=== PATIENT | male | born 1970 ===

== ENCOUNTER 2025-06-28 11:00 | Inpatient (IN) | payer OTHER ==
[2025-06-17 13:55] VITALS: BP 122/85
[~2025-06-28] VITALS: Ht 182.9 cm; Wt 101.6 kg
[~2025-06-28 11:00] MED LIST: ACID REDUCER20 M1 PO; ALLERGY EYE DRO10 M1 OTIC; MULTIPLE VITAM1 EAC2 PO; PRILOSEC OTC20 MG PO
[2025-06-28] MEDS ORDERED: CEFAZOLIN SODIUM 1,000 MG VIAL ONE ×2 (12:21→23:57)
[2025-06-28] MEDS ORDERED: SODIUM CHLORIDE 0.45 % 1,000 ML IV SCH (18:00)
[2025-06-28] MEDS ORDERED: ACETAMINOPHEN 500 MG GEL..CAP PO SCH (18:00)
[2025-06-28] MEDS ORDERED: MORPHINE SULFATE 4 MG/ML CARTRIDGE IV PRN (18:00)
[2025-06-28] MEDS ORDERED: ONDANSETRON HCL 2 MG/ML VIAL IV PRN (18:00)
[2025-06-28] MEDS ORDERED: OxyCODONE HCL 5 MG TABLET (ROXICODONE) PO PRN (18:00)
[2025-06-28] MEDS ORDERED: ACETAMINOPHEN 500 MG GEL..CAP PO ONE (22:48)
[2025-06-28] MEDS ORDERED: GABAPENTIN 300 MG CAPSULE PO ONE (23:57)
[2025-06-29] MEDS ORDERED: GABAPENTIN 300 MG CAPSULE PO SCH (01:00)
[2025-06-29] MEDS ORDERED: CEFAZOLIN SODIUM 1,000 MG VIAL IV SCH (01:00)
[2025-06-29 03:14] VITALS: BP 117/69; O2SAT 99
[2025-06-29] MEDS ORDERED: APIXABAN 2.5 MG TABLET PO SCH (09:00)
[2025-06-29] MEDS ORDERED: SENNOSIDES 1 TAB TABLET PO SCH (09:00)
[2025-06-29] MEDS ORDERED: ENDOCET 2.5-321 EACH PO (09:02)
[2025-06-29] MEDS ORDERED: WALKER (09:02)
[2025-06-29] MEDS ORDERED: ASA325 M1 PO (09:02)
[2025-06-29 09:12] VITALS: BP 121/72; O2SAT 95
[2025-06-30] MEDS ORDERED: IRON FUM,PS/FOLIC ACID/VITC/B3 1 CAP CAPSULE PO SCH (09:00)
== END 2025-06-29 13:44 | disposition home or self-care (01) | DRG 499 ==
LOC: CIR.AMB 11:00 → SURH 17:54 → O/R 17:54 → SURH 22:03
PROVIDERS: ADMIT Orthopaedic Surgery; ATTEND Orthopaedic Surgery
PROC: 0QU70KZ Supplement Left Upper Femur with Nonautologous Tissue Substitute, Open Approach (ICD-10-PCS; 2025-06-28)
PROC: 0QU70JZ Supplement Left Upper Femur with Synthetic Substitute, Open Approach (ICD-10-PCS; 2025-06-28)
PROC: 0QB70ZZ Excision of Left Upper Femur, Open Approach (ICD-10-PCS; principal; 2025-06-28 13:30)
DX: M87.052 Idiopathic aseptic necrosis of left femur (principal)